=== PATIENT | female | born 1995 | race African-American/Black ===

== ENCOUNTER 2019-11-06 09:15 | Emergency (ER) | payer OTHER, SELFPAY ==
[2019-11-06 09:32] VITALS: BP 117/68; PULSE 70; RESP 16; TEMP 36.9; O2SAT 100
--- NOTE | 2019-11-06 09:34 | ED.FEMALEGU ---
HPI - Female Genitourinary General Chief complaint: Urogenital-Female Stated complaint: vaginal discharge Time Seen by Provider: 11/06/19 09:43 Source: patient, family and RN notes reviewed Mode of arrival: ambulatory Limitations: no limitations History of Present Illness HPI Narrative: This is a 24 years old female presented office for evaluation of vaginal discharge for 5days. He normally get discharge after her. However she noticed this time the smell is stronger than her usual discharge. Denies vaginal itchy, lesion, irritation, urinary pain, or trauma. She is sexually active with one partner, denies concern for STD. Admits to history of BV in the past. Related Data Allergies Allergy/AdvReac Type Severity Reaction Status Date / Time cefaclor [From [facility]] Allergy Hives Verified 11/06/19 09:37 Review of Systems Review of Systems: Narrative: CONSTITUTIONAL: Denies fever or feeling CARDIOVASCULAR: Denies chest pain RESPIRATORY: Denies dyspnea GASTROINTESTINAL: Denies abdominal pain, nausea, vomiting, diarrhea. GENITOURINARY: Denies urinary symptoms. Reports vaginal discharge with foul odor SKIN: Denies rash MUSCULOSKELETAL: Denies acute back pain NEUROLOGIC: Denies lightheaded PMFSH Social History Social History Gender identity (if verbalized by the patient): Female Comments At time of signature, I agree with nursing past medical, surgical, social and family history. There is no relevant family history pertinent to the presenting complaint. Exam Narrative: Exam Narrative: GENERAL: This is a well-nourished, well-developed patient, in no apparent distress. CARDIOVASCULAR: Regular rate and rhythm without murmurs, gallops, or rubs. RESPIRATORY: Clear to auscultation. Breath sounds equal bilaterally. No wheezes, rales, or rhonchi. GASTROINTESTINAL: Abdomen soft, non-tender, nondistended. Bowel sounds are active. No hepato-splenomegaly, or palpable masses. No guarding. : Exam chaperoned by woo Orozco,outter vaginal appears normal without obvious tenderness or lesions. Thin greenish color discharge noted. NEURO: awake, alert, and oriented to person, place and time. There were no obvious focal neurologic abnormalities. Steady gait [place] Coma Scale Eye Opening: Spontaneous 4 [place] Coma Scale Motor: Obeys Commands 6 [place] Coma Scale Verbal: Oriented 5 Course Vital Signs Vital signs: Vital Signs Temperature 98.5 F 11/06/19 09:32 Pulse Rate 70 11/06/19 09:32 Respiratory Rate 16 11/06/19 09:32 Blood Pressure 117/68 11/06/19 09:32 Pulse Oximetry 100 11/06/19 09:32 Temperature 98.5 F 11/06/19 09:32 Pulse Rate 70 11/06/19 09:32 Respiratory Rate 16 11/06/19 09:32 Blood Pressure 117/68 11/06/19 09:32 Pulse Oximetry 100 11/06/19 09:32 MDM - Female Genitourinary MDM Narrative Medical decision making narrative: I went ahead and treat patient for BV based on color of the discharge. Discharge instructions reviewed with patient, as well as provided in writing per nursing staff. The instructions also include specific and strict return/GO TO THE ER as well as f/u information. All questions have been answered, and the patient deny any further questions with discharge and discharge plan. Differential Diagnosis Differential diagnosis: Likely urinary tract infection, bacterial vaginosis, trichomoniasis, vaginitis and cystitis Critical Care Time Critical Care Time Critical Care Time: No Discharge Plan Discharge Clinical Impression: Vaginal discharge Patient Disposition: Home, Self-Care Condition: Stable Instructions: Vaginal Discharge (ED) Additional Instructions: I sent a vaginal swab for trichomonas; it may take 7day for result to come back; we will call you regardless of positive or negative. Currently, do not douche or and restrain from sexual intercourse until the result is back. Make sure do not
== END 2019-11-06 10:03 | disposition home or self-care (01) ==
PROVIDERS: Emergency Provider Nurse Practitioner
DX: N89.8 Other specified noninflammatory disorders of vagina (principal)
CPT/HCPCS: 87661; 99204; G0463